=== PATIENT | male | born 1975 | race Caucasian/White ===

== ENCOUNTER 2017-09-15 07:32 | Emergency (ER) | payer MEDICAID, MEDICARE ==
[~2017-09-15] VITALS: Ht 177.8 cm; Wt 113.4 kg
[2017-09-15 07:36] VITALS: BP_SYST 168
[2017-09-15 08:33] VITALS: BP_SYST 145
== END 2017-09-15 08:33 | disposition home or self-care (01) ==
LOC: SED 07:32
DX: L53.9 Erythematous condition, unspecified (principal); S80.862A Insect bite (nonvenomous), left lower leg, initial encounter; L03.116 Cellulitis of left lower limb; I10 Essential (primary) hypertension; W57.XXXA Bitten or stung by nonvenomous insect and other nonvenomous arthropods, initial encounter; Y93.89 Activity, other specified; Y92.89 Other specified places as the place of occurrence of the external cause; Y99.8 Other external cause status
CPT/HCPCS: 87070-TC; 99283

== ENCOUNTER 2019-04-03 06:49 | Emergency (ER) | payer MEDICAID, MEDICARE ==
[~2019-04-03] VITALS: Ht 177.8 cm; Wt 127.0 kg
[2019-04-03 06:59] VITALS: BP_SYST 170
[2019-04-03 08:21] LABS: BASOPHILS # (AUTO) 0.1 K/uL (0.0-0.2); BASOPHILS % (AUTO) 0.6 % (0.0-2.0); EOSINOPHILS # (AUTO) 0.2 K/uL (0.0-0.4); EOSINOPHILS % (AUTO) 1.9 % (0.0-4.0); HEMATOCRIT 44.9 % (36-54); HEMOGLOBIN 14.8 g/dL (14.0-18.0); LYMPHOCYTES # (AUTO) 1.7 K/uL (1.0-5.5); LYMPHOCYTES % (AUTO) 16.4 % (20.5-51.5); MEAN CORPUSCULAR HEMOGLOBIN 32 pg (27-31); MEAN CORPUSCULAR HGB CONC 33 % (32-36); MEAN CORPUSCULAR VOLUME 96 fL (79.0-98.0); MONOCYTES # (AUTO) 0.8 K/uL (0.0-1.0); MONOCYTES % (AUTO) 7.7 % (1.7-9.3); NEUTROPHILS # (AUTO) 7.8 K/uL (1.8-7.7); NEUTROPHILS % (AUTO) 73.4 % (40.0-70.0); PLATELET COUNT (AUTO) 304 K/uL (130-430); RED BLOOD CELL COUNT(AUTO) 4.67 MIL/uL (4.2-6.2); RED CELL DISTRIBUTION WIDTH 14.8 % (9.0-15.0); WHITE BLOOD COUNT (AUTO) 10.6 K/uL (4.8-10.8)
[2019-04-03 08:25] LABS: BILIRUBIN,URINE NEGATIVE (NEGATIVE); BLOOD, URINE NEGATIVE (NEGATIVE); CLARITY/URINE CLEAR (CLEAR); COLOR,URINE YELLOW (YELLOW); GLUCOSE,URINE NEGATIVE (NEGATIVE); KETONES,URINE NEGATIVE (NEGATIVE); LEUKOCYTE ESTERASE ,URINE NEGATIVE (NEGATIVE); NITRITE, URINE NEGATIVE (NEGATIVE); PROTEIN URINE NEGATIVE (NEGATIVE); UROBILINOGEN,URINE 0.2 (0.2-1.0)
[2019-04-03 08:31] LABS: CREATININE 1.12 mg/dL (0.55-1.30); POTASSIUM 4.4 mmol/L (3.5-5.1)
[2019-04-03 08:37] LABS: ALBUMIN 3.3 g/dL (3.4-4.8); TOTAL BILIRUBIN 0.3 mg/dL (0.0-1.0)
[2019-04-03 08:39] LABS: INR 0.9 (0.80-1.20); PROTHROMBIN TIME 9.6 SECS (9.5-12.5)
[2019-04-03] MEDS ORDERED: KETOROLAC TROMETHAMINE 15 MG VIAL IVP ONE (08:45)
[2019-04-03] MEDS ORDERED: FUROSEMIDE 40 MG/4 ML VIAL IVP ONE (08:45)
[2019-04-03] MEDS ORDERED: NITROGLYCERIN 1 INCH (GM) OINT. TP ONE (08:45)
[2019-04-03] MEDS ORDERED: FUROSEMIDE 40 MG/4 ML VIAL ONE (08:57)
[2019-04-03] MEDS ORDERED: NITROGLYCERIN 1 INCH (GM) OINT. ONE (08:58)
[2019-04-03 10:34] VITALS: BP_SYST 130
== END 2019-04-03 10:34 | disposition home or self-care (01) ==
LOC: SED 06:49
DX: R06.02 Shortness of breath (principal); E78.00 Pure hypercholesterolemia, unspecified; I10 Essential (primary) hypertension; F17.200 Nicotine dependence, unspecified, uncomplicated
CPT/HCPCS: 36415; 36600; 71045; 80053; 81003; 82803; 83605; 83880; 84484; 85025; 85610; 85730; 87040; 93005; 96374; 96375; 99284; J1885; J1940